=== PATIENT | male | born 1950 | race Caucasian/White ===

== ENCOUNTER 2018-05-10 16:24 | Emergency (ER) | payer MEDICAID ==
[~2018-05-10] VITALS: Ht 182.9 cm; Wt 78.6 kg
[2018-05-10 18:18] LABS: CLARITY URINE CLEAR (CLEAR); COLOR URINE YELLOW (YELLOW); KETONES URINE NEGATIVE (NEGATIVE); LEUKOCYTE ESTERASE URINE TRACE (NEGATIVE); NITRITE URINE NEGATIVE (NEGATIVE); OCCULT BLOOD URINE NEGATIVE (NEGATIVE); PROTEIN URINE NEGATIVE (NEGATIVE); SPECIFIC GRAVITY URINE 1.012 (1.005-1.030); UROBILINOGEN URINE 0.2 E.U./dL (0.2-1.0)
[2018-05-10] MEDS ORDERED: MORPHINE SULFATE 10 MG/ML CPJ IV ONE (18:30)
[2018-05-10] MEDS ORDERED: ONDANSETRON 4MG ODT PO ONE (18:30)
[2018-05-10 18:47] VITALS: BP 159/108
== END 2018-05-10 19:30 | disposition home or self-care (01) ==
LOC: ER 17:42
DX: T83.9XXA Unspecified complication of genitourinary prosthetic device, implant and graft, initial encounter (principal); N39.0 Urinary tract infection, site not specified; I10 Essential (primary) hypertension; Z85.46 Personal history of malignant neoplasm of prostate
CPT/HCPCS: 51702; 81003; 87077; 87086; 87186; 96374; 99284; J2270; Q0162; Z7610; A4315

== ENCOUNTER 2018-11-14 15:48 | Emergency (ER) | payer MEDICAID ==
[2018-11-14] MEDS ORDERED: ATORVASTATIN (16:00)
[2018-11-14] MEDS ORDERED: LIDOCAINE HCL 2% JELLY 5ML MM ONE (16:30)
[2018-11-14 18:23] LABS: CLARITY URINE CLEAR (CLEAR); COLOR URINE YELLOW (YELLOW); KETONES URINE TRACE (NEGATIVE); LEUKOCYTE ESTERASE URINE 1+ (NEGATIVE); NITRITE URINE POSITIVE (NEGATIVE); OCCULT BLOOD URINE TRACE (NEGATIVE); PROTEIN URINE 1+ (NEGATIVE); SPECIFIC GRAVITY URINE 1.023 (1.005-1.030); UROBILINOGEN URINE 0.2 E.U./dL (0.2-1.0)
[2018-11-14 20:09] VITALS: BP 165/92
== END 2018-11-14 20:12 | disposition home or self-care (01) ==
LOC: ER 15:48
DX: T83.098A Other mechanical complication of other urinary catheter, initial encounter (principal); Y84.6 Urinary catheterization as the cause of abnormal reaction of the patient, or of later complication, without mention of misadventure at the time of the procedure; Y92.098 Other place in other non-institutional residence as the place of occurrence of the external cause; N39.0 Urinary tract infection, site not specified; I10 Essential (primary) hypertension
CPT/HCPCS: 51702; 87077; 87186; 99284

== ENCOUNTER 2020-05-01 01:19 | Emergency (ER) | payer MEDICAID ==
[~2020-05-01] VITALS: Ht 185.4 cm; Wt 86.0 kg
[~2020-05-01 01:19] MED LIST: ATORVASTATIN
[2020-05-01] MEDS ORDERED: SODIUM CHLORIDE 0.9% 1,000 ML IV ONE (02:41)
[2020-05-01] MEDS ORDERED: ONDANSETRON HCL 4MG/2ML INJ IV STA (02:41)
[2020-05-01] MEDS ORDERED: MORPHINE SULFATE 4 MG/ML CPJ (NOT FOR IM USE) IV STA (02:41)
[2020-05-01 03:03] LABS: BASOPHILS % 0.3 % (0.0-2.0); HEMATOCRIT. 41.2 % (42.0-52.0); HEMOGLOBIN. 14.4 g/dL (14.0-18.0); LYMPHOCYTES % 7.4 % (20.0-50.0); MEAN CORPUSCULAR HEMOGLOBIN 29.6 pg (28.0-32.0); MEAN CORPUSCULAR VOLUME 84.8 fL (80.0-94.0); MEAN PLATELET VOLUME 7.1 fl (7.4-10.4); MONOCYTES % 4.2 % (2.0-8.0); NEUTROPHILS % 88.1 % (40.0-76.0); PLATELET 283 x1000/uL (130-400); RED BLOOD CELL COUNT 4.86 mill/uL (4.7-6.1); RED CELL DISTRIBUTION WIDTH 14.5 % (11.6-14.6)
[2020-05-01 03:07] LABS: CHLORIDE 103 mEq/L (98-107)
[2020-05-01] MEDS ORDERED: IOHEXOL-350 100 ML BOTTLE ONE (04:35)
[2020-05-01] MEDS ORDERED: MORPHINE SULFATE 4 MG/ML CPJ (NOT FOR IM USE) IV ONE (05:45)
[2020-05-01] MEDS ORDERED: ONDANSETRON HCL 4MG/2ML INJ IV ONE (05:45)
[2020-05-01] MEDS ORDERED: CEFTRIAXONE 1 G PREMIX 50 ML IV ONE (06:00)
[2020-05-01 06:54] VITALS: BP 147/80
== END 2020-05-01 07:09 | disposition home or self-care (01) ==
LOC: ER 01:19
DX: K81.9 Cholecystitis, unspecified (principal); I10 Essential (primary) hypertension; Z85.46 Personal history of malignant neoplasm of prostate; Z96.659 Presence of unspecified artificial knee joint
CPT/HCPCS: 36415; 71045; 71275; 74174; 80053; 83605; 83690; 84484; 85025; 93005; 96365; 96375; 96376; 99285; J0696; J2270; J2405; J7030; Q9967